=== PATIENT | female | born 1990 | race Hispanic/Latino ===

== ENCOUNTER 2017-10-21 13:54 | Emergency (ER) | payer OTHER, BC ==
[2017-10-21 14:02] VITALS: BMI 22.4
[2017-10-21 14:05] VITALS: O2SAT 100
[2017-10-21] MEDS ORDERED: Naproxen 550 mg Tab PO STA (14:21)
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
[2017-10-21] MEDS ORDERED: Naproxen 550 mg Tab PO ONE (14:29)
[2017-10-21 15:20] VITALS: BP 130/80; PULSE 67; RESP 18; TEMP 98.2
== END 2017-10-21 15:21 | disposition home or self-care (01) ==
LOC: C.ER 13:54
DX: Z04.1 Encounter for examination and observation following transport accident (principal)